=== PATIENT | male | born 1945 | race Caucasian/White ===

== ENCOUNTER 2016-03-28 16:39 | Emergency (ER) | payer OTHER, MEDICARE ==
[~2016-03-28] VITALS: Ht 185.4 cm; Wt 68.0 kg
--- NOTE | 2016-03-28 16:43 | ED AMS/SEIZURE/WEAK/DIZZY ---
History of Present Illness General Chief Complaint: Altered Mental Status Stated Complaint: AMS, S/P POSSIBLE SEIZURE Source: patient, family Exam Limitations: clinical condition Vital Signs & Intake/Output Vital Signs & Intake/Output Vital Signs Date Time Temp Pulse Resp B/P Pulse O2 O2 Flow FiO2 Ox Delivery Rate 03/28 1953 97.2 81 18 157/88 03/28 1936 97.2 81 18 157/88 100 Room Air 03/28 1705 100 Room Air 03/28 1642 96.6 88 18 124/66 100 Room Air Triage Nurses Notes Reviewed? yes HPI: 70 yo M PMH HTN, HLD, A-Fib (on coumadin), CVA, CKD (baseline Cr 3.8), epilepsy (on keppra) presenting with headache, altered mental status, neurologic Sx, syncope. Headache since monday night, throbbing quality, bitemporal, constant. Waxing and waning AMS since that time with periods of somnolence and confusion. Intermittent neurologic Sx with L facial, LUE, LLE weakness, present this morning, currentlty resolved. Syncopal episode this afternoon, patient had had fecal incontinence, family helped him to the bathroom, urinated, then suffered syncopal episode, slumped backwards, supported by family without fall or head trauma, LOC x 1 minute with spontaneous resolution, mild post-episode confusion, no tonic clonic seizure activity. Denies fevers, chills, chest pain, SOB, AP, N/V/D/C, urinary Sx. 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 Hx of A- fib, decided to stop AC with coumadin, last dose 2 days ago. (CARIRE BUSTILLO,KEZIA) Allergies Coded Allergies: Iodinated Contrast Media - Oral and (HIGH CREATININE AND BUN SINCE 1999 DUE TO THIS 03/28/16) codeine (RASH 03/28/16) Reconcile Medications Alprazolam 0.5 MG TABLET 1 TAB PO QPM ANXIETY (Reported) Aspirin (Ecotrin*) 81 MG TABLET.DR 1 TAB PO QPM HEART/BLOOD (Reported) Atorvastatin Calcium 80 MG TABLET 1 TAB PO QPM CHOLESTEROL (Reported) Carvedilol (Coreg) 12.5 MG TABLET 1 TAB PO BID BP (Reported) Dorzolamide HCl 2 % DROPS 1 GTT OS QHS LEFT EYE (Reported) Escitalopram Oxalate (Lexapro) 10 MG TABLET 1 TAB PO QAM ANXIETY/DEPRESSION ( Reported) Folic Acid 1 MG TABLET 1 TAB PO QAM SUPPLEMENT (Reported) Levetiracetam (Keppra) 500 MG TABLET 1 TAB PO BID SEIZURES (Reported) Losartan Potassium 25 MG TABLET 1 TAB PO DAILY BP (Reported) Prednisolone Acetate (Pred Forte) 1 % DROPS.SUSP 1 GTT OS QAM LEFT EYE ( Reported) Sodium Bicarbonate 650 MG TABLET 1 TAB PO TID KIDNEYS (Reported) (SAW DOE DO) Past History Travel History Traveled to [place] past 21 day No Medical History Any Pertinent Medical History? see below for history Neurological: CVA, seizure Cardiovascular: AFIB, hypertension, hyperlipidemia Renal: chronic kidney disease Surgical History Surgical History: non-contributory Family History Hx Contributory? Yes (KEZIA BUTLER MD) Review of Systems Review of Systems Constitutional: Reports: malaise, weakness. Denies: chills, fever. EENTM: Reports: visual changes. Respiratory: Reports: no symptoms. Denies: cough, orthopnea, short of breath, sputum production, wheezing. Cardiovascular: Reports: no symptoms. GI: Reports: no symptoms. Genitourinary: Reports: no symptoms. Musculoskeletal: Reports: no symptoms. Skin: Reports: no symptoms. Neurological/Psychological: Reports: confusion, headache, weakness. Hematologic/Endocrine: Reports: no symptoms. Immunologic/Allergic: Reports: no symptoms. All Other Systems: Reviewed and Negative (KEZIA BUTLER MD) Physical Exam Physical Exam General Appearance: no apparent distress, alert, awake Head: atraumatic, normal appearance Ears, Nose, Throat: normal ENT inspection Neck: supple, full range of motion Respiratory: normal breath sounds, no respiratory distress, lungs clear Cardiovascular: regular rate/rhythm, normal peripheral pulses Peripheral Pulses: 1+ radial (R), 1+ radial (L), 1+ dorsalis pedis (R), 1+ dorsalis pedis (L) Gastrointestinal: normal bowel sounds, soft, non-tender Back: normal range of motion Extremities: normal range of motion Neurologic/Psych: See Below Comments: Neurologic: AAOx2, Left pupil non-reactive (baseline per family), otherwise Cr nerves intact, Mild LUE pronator drift, Large left visual field deficits, right visual eubanks grossly intact, past pointing with [id number] testing, BLE UE/LE strength 5/5, no sensory deficits Core Measures ACS in differential dx? No CVA/TIA Diagnosis: Yes Severe Sepsis Present: No Septic Shock Present: No (CARRIE BUSTILLO,KEZIA) Progress Differential Diagnosis: CVA/stroke, intracranial Hem., intracranial mass/tumor Plan of Care: Orders Procedure Date/time Status LACTIC ACID 03/28 2020 Active BLOOD PRODUCT PICKUP 03/28 2005 Active Add-on Test (ER Only) 03/28 1826 Active TYPE & SCREEN (NOT X-MATCH) 03/28 1726 Complete URINALYSIS 03/28 1720 Active PROTHROMBIN TIME 03/28 1720 Complete LACTIC ACID 03/28 1720 Complete COMPREHENSIVE METABOLIC PANEL 03/28 1720 Complete CBC WITHOUT DIFFERENTIAL 03/28 1720 Complete EKG 03/28 1720 Active Laboratory Tests 03/28/161726: Anion Gap 10, Estimated GFR 14 L, BUN/Creatinine Ratio 10.2, Glucose 123 H, Lactic Acid 1.2, Calcium 8.7, Total Bilirubin 0.7, AST 44, ALT 62, Alkaline Phosphatase 133 H, Total Protein 6.4, Albumin 3.6, Globulin 2.8, Albumin/ Globulin Ratio 1.3, PT 43.1 *H, INR 4.16 *H, CBC w Diff NO MAN DIFF REQ, RBC 3.23 L, MCV 103.4 H, MCH 34.6 H, RDW 15.4 H, MPV 9.1, Gran % 54.6, Lymphocytes % 14.4 L, Monocytes % 7.8, Eosinophils % 22.7 H, Basophils % 0.5, Absolute Granulocytes 6.0, Absolute Lymphocytes 1.6, Absolute Monocytes 0.9 H, Absolute Eosinophils 2.5, Absolute Basophils 0.1, PUBS MCHC 33.5 Physician MDM: 70 yo M PMH HTN, HLD, A-Fib (on coumadin), epilepsy, CVA presenting with AMS, headache, neurologic Sx. VSS, SBP 120s on arrival, neurologic exam as above. DDx: ICH, CVA/TIA, Sepsis, Orthostatic/vasovagal syncope, arrhythmia, seizure. CBC with mild leukocytosis. CMP with elevated Cr 4.1 around baseline. Lactate 1.2. CT head with large R. intraparenchymal bleed 3.5 x 3.7 with ventricular extension, no midline shift. INR 4.4. 4U FFP, vitamin K ordered. Repeat SBPs 150, 163, 10 mg labetalol given, will monitor for SBP < 140, consider nicardipine gtt. Discussed case with Dr. Case (on-call NSG) recommended transfer to [place]. Discussed case with [facility] Dr. Muñoz, reccomended platelets given recent ASA use, accepted for transfer to [facility] ED. Platelets ordered. Patient and family amenable to transfer, on re-exmination patient awake, alert, neurologic exam unchanged. Transfer to [facility] for higher level of care in neuro ICU, NSG consult. Kezia Butler MD PGY-3 Emergency Medicine (CARRIE BUSTILLO,KEZIA) Initial ED EKG: AFIB (CARRIE BUSTILLO,KEZIA) Departure Departure Disposition: OTHER [facility] (ACUTE) Condition: Critical Clinical Impression Primary Impression: Intraparenchymal hemorrhage of brain Departure Forms: Customer Survey General Discharge Information (CARRIE BUSTILLO,KEZIA) Departure Comments 03/28/16 I have seen and personally examined the patient and I agree with the above information and the physician's evaluation. The patient denied any headache on my exam, his neurological exam was essentially normal other than left arm drift. CT shows intraparenchymal bleed. Neurosurgical consultation recommends transfer to [place]. He is coagulopathic secondary to Coumadin. Vitamin K was given. FFP and platelets were ordered. The patient was transferred to [place] for a higher level of care. Resident Co-Sign Statement Statement: ED Attending supervision documentation- [x] I saw and evaluated the patient. I have also reviewed all the pertinent lab results and diagnostic results. I agree with the findings and the plan of care as documented in the Resident's documentation. [] I have reviewed the ED Record and agree with the Resident's documentation. [] Additions or exceptions (if any) to the Resident's note and plan are summarized below: [] (SAW DOE DO)
[2016-03-28] MEDS ORDERED: ATORVASTATIN CA80 M1 PO (17:31)
[2016-03-28] MEDS ORDERED: ASPIRIN EC81 M1 PO (17:31)
[2016-03-28] MEDS ORDERED: FOLIC ACID1 M1 PO (17:32)
[2016-03-28] MEDS ORDERED: COREG12.5 M1 PO (17:32)
[2016-03-28] MEDS ORDERED: KEPPRA500 M1 PO (17:32)
[2016-03-28] MEDS ORDERED: LOSARTAN POTASS25 M1 PO (17:33)
[2016-03-28] MEDS ORDERED: ALPRAZOLAM0.5 M4 PO (17:33)
[2016-03-28] MEDS ORDERED: LEXAPRO10 M1 PO (17:34)
[2016-03-28] MEDS ORDERED: SODIUM BICARBO650 M1 PO (17:34)
[2016-03-28] MEDS ORDERED: DORZOLAMIDE HCL10 M1 OS (17:35)
[2016-03-28] MEDS ORDERED: PRED FORTE1 ML OS (17:35)
[2016-03-28 17:46] LABS: ABSOLUTE BASOPHIL COUNT 0.1 /CUMM (0.0-0.2); ABSOLUTE EOSINOPHIL COUNT 2.5 /CUMM (0.0-0.7); ABSOLUTE LYMPH COUNT 1.6 /CUMM (1.2-3.4); ABSOLUTE MONOCYTE COUNT 0.9 /CUMM (0.10-0.60); BASOPHIL % 0.5 % (0.0-2.0); GRANULOCYTE % 54.6 % (42.2-75.2); HEMATOCRIT 33.4 % (42-52); MEAN CORPUSCULAR HGB 34.6 PG (27.0-31.0); MEAN CORPUSCULAR HGB CONC 33.5 G/DL (33.0-37.0); MEAN CORPUSCULAR VOLUME 103.4 FL (80.0-94.0); MEAN PLATELET VOLUME 9.1 FL (7.4-10.4); PLATELET COUNT 257 /CUMM (130-400); RBC DISTRIBUTION WIDTH 15.4 % (11.5-14.5); RED BLOOD CELL CT 3.23 /CUMM (4.70-6.10)
[2016-03-28 17:55] LABS: PT 43.1 SEC (9.4-12.5)
[2016-03-28 18:01] LABS: EOSINOPHIL % 22.7 % (0-5)
--- NOTE | 2016-03-28 18:06 | CT SCAN REPORT ---
EXAMINATION: CT HEAD WITHOUT CONTRAST CLINICAL INFORMATION: Headache on Coumadin. Evaluate for acute intracranial hemorrhage. COMPARISON: None. TECHNIQUE: Contiguous axial imaging was performed from the skull base to vertex without intravenous administration of contrast. DLP: 600 mGy-cm FINDINGS: Noncontrast CT imaging of the brain is notable for an acute intraparenchymal hematoma within the right cerebral hemisphere. The dominant sphere of hemorrhage is centered within the right parietal lobe and measures approximately 3.5 x 3.6 cm in AP and transverse dimensions respectively (series 2, image 33). There is contiguous extension of blood products into the right occipital horn of the right lateral ventricle with associated expansion of the ventricle. There is an additional punctate focus of hyperdensity along the right parietal lobe, measuring approximately 0.6 cm (series 2, image 35). There is no significant midline shift. There is generalized parenchymal volume loss with proportional prominence of the sulci and ventricles with the exception of the posterior horn of the right lateral ventricle. Minimal blood products are also visualized layering dependently within the posterior horn of the left lateral ventricle. The basilar cisterns are patent. There are prominent bifrontal extra-axial spaces secondary to generalized parenchymal volume loss. No abnormal extra-axial fluid collections are identified. Areas of hypoattenuation within the periventricular white matter as well as within the deep cortical white matter are nonspecific but could reflect moderate chronic microvascular ischemia. No acute calvarial abnormality is identified. Evaluation of the paranasal sinuses demonstrates minimal mucosal thickening of the right maxillary sinus. The remaining imaged paranasal sinuses and mastoid air cells are well aerated. IMPRESSION: 1. Acute intraparenchymal hematoma within the right cerebral hemisphere, with the dominant sphere of hemorrhage identified within the right parietal lobe measuring 3.5 x 3.6 cm in AP and transverse dimensions respectively. There is contiguous extension of blood products into the ventricular system, notably the right lateral ventricle, with associated expansion of the posterior horn of the right lateral ventricle. Minimal blood products are also visualized layering dependently within the posterior horn of the left lateral ventricle. 2. No significant midline shift. The basilar cisterns are patent. 3. Incidental 0.6 cm punctate focus of hyperdensity along the right parietal lobe. This could reflect an additional site of intraparenchymal hematoma. 4. Generalized parenchymal volume loss with proportional prominence of the sulci and ventricles, with the exception of the posterior horn of the right lateral ventricle which is expanded by acute blood products. Areas of hypoattenuation within the periventricular and deep cortical white matter could reflect moderate chronic microvascular ischemia. This critical result was discussed with Dr. Roque Tellez at 5:54 PM on 03/28/2016 and it was ascertained that the content and urgency of the report was understood at the time of direct communication.
--- NOTE | 2016-03-28 19:02 | RADIOLOGY REPORT ---
EXAMINATION: XR PORTABLE CHEST CLINICAL INFORMATION: Cough COMPARISON: None TECHNIQUE: Portable AP view of the chest was obtained. FINDINGS: Cardiomediastinal silhouette is within normal limits. Minor prominence of the pulmonary markings likely are presenting chronic change. No acute airspace opacity. There is no pleural effusion.. Bony thorax is intact. Degenerative changes right shoulder. IMPRESSION: No acute pulmonary disease.
[2016-03-28 20:00] VITALS: BP 148/80
== END 2016-03-28 20:08 | disposition short-term general hospital (02) ==
LOC: ERH 16:39
PROVIDERS: Student in an Organized Health Care Education/Training Program
DX: I61.9 Nontraumatic intracerebral hemorrhage, unspecified (principal); Z79.01 Long term (current) use of anticoagulants
CPT/HCPCS: 36415; 93005; 93010; 96372; 96374